=== PATIENT | male | born 1955 | race Caucasian/White ===

== ENCOUNTER 2017-05-11 20:52 | Emergency (ER) | payer SELFPAY ==
[~2017-05-11] VITALS: Ht 185.4 cm; Wt 84.0 kg
[2017-05-11 20:55] VITALS: BP 127/78
[2017-05-11] MEDS ORDERED: ACETAMINOPHEN 325MG TABLET PO ONE (21:30)
== END 2017-05-11 23:30 | disposition home or self-care (01) ==
LOC: ER 20:57
DX: M25.561 Pain in right knee (principal); M25.562 Pain in left knee; Z59.0 Homelessness
CPT/HCPCS: 73562; 99284